=== PATIENT | female | born 1990 | race African-American/Black ===

== ENCOUNTER → 2016-12-16 | Outpatient (CLI) | payer MEDICAID ==
[~2016-12-16] MED LIST: COLACE-DPS100 MG PO; DERMOPLAST SPRA56 GM PR; LAN-O-SOOTHE7 GM TP; MOTRIN-DPS800 MG PO; NIPPLECREAM TP; PRENATAL VIT1 TAB PO; PRENATAL VITAM1 EAC6 PO; PRILOSEC DPS20 MG PO; TUCKS1 EACH PR; TYLENOL #3 DPS1 TAB PO; TYLENOL EXTRA500 M1 PO
== END | disposition home or self-care (01) ==
LOC: RAD.S 15:30
DX: Z36 Encounter for antenatal screening of mother (principal); Z3A.21 21 weeks gestation of pregnancy

== ENCOUNTER 2017-01-12 16:24 | Emergency (ER) | payer MEDICAID ==
[~2017-01-12 16:24] MED LIST changes: -PRENATAL VITAM1 EAC6 PO; -PRILOSEC DPS20 MG PO; -TYLENOL EXTRA500 M1 PO
--- NOTE | 2017-01-14 11:08 | ER ---
ADMIT: 01/12/2017 RM/LOC: ER [facility] MR#: [id number] [place], [place] [id number] JANE ONEILL [address] [address] Emergency Room Report SEX: F AGE: 26 : 1990 DATE: 01/12/2017 The patient is a 26-year-old, five month complaining of sore throat for 3 hours. She denies any nausea, fever, or headache. PHYSICAL EXAMINATION: VITAL SIGNS: Within normal limits. She does have a temp of 99.2, O2 sats 100%. GENERAL: Mildly anxious. HEENT: Left anterior adenopathy. Pharynx clear. No erythema on examination. No exudates present. The patient given GI cocktail and advised to use Chloraseptic spray over the counter. Follow up with primary provider. Warm salt water gargle and Tylenol. CLINICAL IMPRESSION: Throat pain, adenopathy left-sided. LUPE Spann / Mauricio Allen MD / clairl JOB #: [id number] CC: Mauricio Allen MD, Attending Physician
[2017-04-24] MEDS ORDERED: PRENATAL VITAM1 EAC6 PO (14:15)
[2017-04-24] MEDS ORDERED: PRILOSEC DPS20 MG PO (14:15)
[2017-04-24] MEDS ORDERED: TYLENOL EXTRA500 M1 PO (14:16)
[2017-04-24] MEDS ORDERED: COLACE-DPS100 MG PO (14:16)
[2017-04-24] MEDS ORDERED: NIPPLECREAM TP (14:16)
[2017-04-24] MEDS ORDERED: MOTRIN-DPS800 MG PO (14:16)
== END 2017-01-12 17:48 | disposition home or self-care (01) ==
LOC: ER 16:24
DX: O99.89 Other specified diseases and conditions complicating pregnancy, childbirth and the puerperium (principal); R59.0 Localized enlarged lymph nodes

== ENCOUNTER 2017-03-13 08:00 | Outpatient (CLI) | payer MEDICAID ==
[2017-04-24] MEDS ORDERED: PRENATAL VITAM1 EAC6 PO (14:15)
[2017-04-24] MEDS ORDERED: PRILOSEC DPS20 MG PO (14:15)
[2017-04-24] MEDS ORDERED: TYLENOL EXTRA500 M1 PO (14:16)
[2017-04-24] MEDS ORDERED: NIPPLECREAM TP (14:16)
[2017-04-24] MEDS ORDERED: COLACE-DPS100 MG PO (14:16)
[2017-04-24] MEDS ORDERED: MOTRIN-DPS800 MG PO (14:16)
== END 2017-03-13 10:50 | disposition home or self-care (01) ==
LOC: BC 08:00 → 2LDRP 08:00 → BC 10:50
DX: O99.89 Other specified diseases and conditions complicating pregnancy, childbirth and the puerperium (principal); R10.9 Unspecified abdominal pain; Z3A.33 33 weeks gestation of pregnancy